=== PATIENT | male | born 1970 | race Caucasian/White ===

== ENCOUNTER 2024-06-11 15:55 | Emergency (ER) | payer BC, OTHER ==
[~2024-06-11] VITALS: Ht 190.5 cm; Wt 110.0 kg
[2024-06-11 17:52] VITALS: PULSE 86; RESP 18; O2SAT 98
[2024-06-11] MEDS: methylPREDNISolone SOD SUCC 125 MG/2 ML VL IM ONE (23:05)
[2024-06-11] MEDS: KETOROLAC TROMETH 30 MG/ML 1ML VIAL IM ONE (23:06)
[2024-06-11 23:14] VITALS: BP 162/96; PULSE 66; RESP 18; TEMP 98.1; O2SAT 100
== END 2024-06-11 23:16 | disposition home or self-care (01) ==
LOC: ER 15:55
DX: S29.012A Strain of muscle and tendon of back wall of thorax, initial encounter (principal); M54.16 Radiculopathy, lumbar region; X50.0XXA Overexertion from strenuous movement or load, initial encounter; Y93.89 Activity, other specified; Y92.89 Other specified places as the place of occurrence of the external cause; Y99.8 Other external cause status
CPT/HCPCS: 70450; 72128; 96372; 99285; J1885; J2919